=== PATIENT | female | born 1945 | race Caucasian/White ===

== ENCOUNTER → 2016-06-22 | Outpatient (CLI) | payer OTHER ==
--- NOTE | 2016-06-22 16:51 | KCIC ---
PROCEDURE [facility] CXR. HISTORY Dyspnea for 1 year. COMPARISON None available. FINDINGS No acute lung infiltrate or pleural effusion or pulmonary edema or lung mass or pneumothorax is seen. 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 The transverse dimension of the heart is mildly accentuated and this may be secondary to the focal eventration. The pulmonary vasculature, mediastinum and both elías are unremarkable. The osseous structures appear intact. IMPRESSION No acute radiographic abnormality is seen. Electronically signed by: Luis Carlos Mojica MD (Jun 22, 2016 16:50:09)
== END | disposition home or self-care (01) ==
LOC: KCIC 15:40
PROVIDERS: ATTEND Family Medicine
DX: R06.00 Dyspnea, unspecified (principal)
CPT/HCPCS: 71020

== ENCOUNTER → 2016-12-14 | Outpatient (CLI) | payer OTHER ==
--- NOTE | 2016-12-14 20:04 | KCIC ---
Bilateral digital screening mammograms: Reason for examination: Routine screening. Comparison is made to previous studies dated 11/06/2015 and 10/24/2014. The skin and nipples show no abnormalities. No abnormal axillary lymph nodes are seen. The breast parenchyma shows scattered fibroglandular density. (Breast density: Category B.) There are no dominant masses, suspicious calcifications or architectural distortions. Impression: No evidence of malignancy. Recommend routine screening. BI-RADS Category 1: Negative. "Our facility is accredited by the [employer] Mammography [employer]." This patient's information has been entered into a reminder system for the patient to be notified with the results of her examination and a target date for the next mammogram. Electronically signed by: Liliya Greer MD (12/14/2016 8:01 PM)
== END | disposition home or self-care (01) ==
LOC: KCIC MAMMO 14:55
PROVIDERS: ATTEND Family Medicine
DX: Z12.31 Encounter for screening mammogram for malignant neoplasm of breast (principal)
CPT/HCPCS: G0202; 77067

== ENCOUNTER → 2017-06-01 | Outpatient (CLI) | payer OTHER ==
--- NOTE | 2017-06-01 16:43 | KCIC ---
CHEST PA LATERAL Clinical indications: Cough and bronchitis COMPARISON: June 22, 2016. Findings: No acute lung infiltrate or pleural effusion or pulmonary edema or lung mass or pneumothorax is seen. The heart size is mildly enlarged but stable. The pulmonary vasculature, mediastinum and both elías are unremarkable. The osseous structures appear intact. Impression: No acute radiographic abnormality is seen. Electronically signed by: Luis Carlos Mojica MD (06/01/2017 4:40 PM) [facility] [place]
== END | disposition home or self-care (01) ==
LOC: KCIC 14:49
PROVIDERS: ATTEND Family Medicine
DX: J40 Bronchitis, not specified as acute or chronic (principal)
CPT/HCPCS: 71020

== ENCOUNTER → 2017-09-22 | Outpatient (CLI) | payer OTHER ==
[2017-09-22] MEDS: IOHEXOL 300 MG/ML 100ML VIAL. IV (11:19)
[2017-09-22 12:15] LABS: ISTAT CREATININE 0.8 mg/dL (0.6-1.1)
== END | disposition home or self-care (01) ==
LOC: KCIC CT 09:38
DX: R31.9 Hematuria, unspecified (principal)
CPT/HCPCS: 74178; 82565; Q9967

== ENCOUNTER → 2018-01-12 | Outpatient (CLI) | payer OTHER | END | disposition home or self-care (01) | LOC: KCIC MAMMO 14:43 | DX: Z12.31 Encounter for screening mammogram for malignant neoplasm of breast (principal) | CPT/HCPCS: 77063; 77067 ==

== ENCOUNTER → 2019-01-22 | Outpatient (CLI) | payer OTHER ==
--- NOTE | 2019-01-23 08:38 | KCIC ---
Bilateral digital screening mammograms with 3-D tomosynthesis: Reason for examination: Routine screening. Comparison is made to previous studies dated 01/12/2018 and 12/14/2016. Bilateral mammograms in CC and oblique projections were obtained with 2-D imaging and 3-D tomosynthesis imaging on a Siemens Inspiration unit and reviewed on the workstation. Interpretation was made with the benefit of CAD. The skin and nipples show no abnormalities. No abnormal axillary lymph nodes are seen. The breast parenchyma is extremely dense. (Breast density: Category D.) There are no dominant masses, suspicious calcifications or architectural distortion. Benign calcifications are present. Impression: No evidence of malignancy. Recommend routine screening. Your patient's mammogram demonstrates that she has dense breast tissue (breast density category C or D), which could hide abnormalities, and if she has other risk factors for breast cancer that have been identified, she might benefit from supplemental screening tests that may be suggested by you as her ordering physician. Dense breast tissue, in and of itself, is a relatively common condition. Therefore, this information is not provided to cause undue concern, but rather to raise your awareness and to promote discussion with your patient regarding the presence of other risk factors, in addition to dense breast tissue. Your patient's mammography results will be sent to her. BI-RAD Category 2: Benign. "Our facility is accredited by the [employer] Mammography [employer]." This patient's information has been entered into a reminder system for the patient to be notified with the results of her examination and a target date for the next mammogram. Electronically signed by: Liliya Greer MD (01/23/2019 8:36 AM) [id number]
== END | disposition home or self-care (01) ==
LOC: KCIC MAMMO 16:02
PROVIDERS: ATTEND Family Medicine
DX: Z12.31 Encounter for screening mammogram for malignant neoplasm of breast (principal); N64.89 Other specified disorders of breast
CPT/HCPCS: 77063; 77067

== ENCOUNTER → 2020-01-24 | Outpatient (CLI) | payer MEDICARE, OTHER ==
--- NOTE | 2020-01-24 18:24 | KCIC ---
Bilateral digital screening mammograms with 3-D tomosynthesis: Reason for examination: Routine screening. Comparison is made to previous studies dated back to 11/06/2015. Bilateral mammograms in CC and oblique projections were obtained with 2-D imaging and 3-D tomosynthesis imaging on a Siemens Inspiration unit and reviewed on the workstation. Interpretation was made with the benefit of CAD. The skin and nipples show no abnormalities. No abnormal axillary lymph nodes are seen. The breast parenchyma is predominantly fatty. (Breast density: Category A.) There continue to be small nodules consistent with intramammary lymph nodes which are stable. There are no new dominant masses, suspicious calcifications or architectural distortion. Benign calcifications are present. Impression: No evidence of malignancy. Recommend routine screening. BI-RAD Category 2: Benign. "Our facility is accredited by the [employer] Mammography [employer]." This patient's information has been entered into a reminder system for the patient to be notified with the results of her examination and a target date for the next mammogram. Electronically signed by: Liliya Greer MD (01/24/2020 6:21 PM) [id number]
== END | disposition home or self-care (01) ==
LOC: KCIC MAMMO 14:20
PROVIDERS: ATTEND Family Medicine
DX: Z12.31 Encounter for screening mammogram for malignant neoplasm of breast (principal)
CPT/HCPCS: 77063; 77067

== ENCOUNTER → 2021-02-25 | Outpatient (CLI) | payer MEDICARE ==
--- NOTE | 2021-02-26 09:28 | KCIC ---
Bilateral digital screening mammograms (2-D): Reason for examination: Routine screening. Comparison is made to previous study dated Bilateral digital screening mammograms: Reason for examination: Routine screening. Comparison: Mammograms from 01/24/2020 and 01/22/2019. Interpretation was made with the benefit of CAD. FINDINGS: Breast density: Category B. There are scattered areas of fibroglandular density. No suspicious breast mass, malignant appearing calcifications, or architectural distortion seen. IMPRESSION: No evidence of malignancy. Recommend routine screening. Assessment: BI-RADS 1. Negative. Recommendation: Routine screening mammograms. Interpretation was made with the benefit of CAD. This patient's information has been entered into a reminder system for the patient to be notified wit h the results of her examination and a target date for the next mammogram. Electronically signed by: Temi Clemons MD (02/26/2021 9:26 AM) [id number]
== END ==
LOC: KCIC MAMMO 15:16
PROVIDERS: ATTEND Family Medicine
DX: Z12.31 Encounter for screening mammogram for malignant neoplasm of breast (principal)
CPT/HCPCS: 77067

== ENCOUNTER → 2021-05-12 | Outpatient (CLI) | payer MEDICARE ==
--- NOTE | 2021-05-12 16:24 | KCIC ---
EXAM: CHEST 2 VIEWS. HISTORY: Rash, sarcoidosis. COMPARISON: None. FINDINGS: Frontal and lateral views of the chest are obtained. The right hemidiaphragm is mildly elevated. There is mild atelectasis in the left base. There are no confluent infiltrates. There is no pneumothorax or pleural effusion. The heart is not enlarged. A gas tric band prosthesis is in expected position. IMPRESSION: 1. No confluent infiltrates. Electronically signed by: Angie Crowder MD (05/12/2021 4:21 PM) [id number]
== END ==
LOC: KCIC 15:38
PROVIDERS: ATTEND Dermatology
DX: J98.11 Atelectasis (principal); D86.9 Sarcoidosis, unspecified; R21 Rash and other nonspecific skin eruption; Z98.84 Bariatric surgery status
CPT/HCPCS: 71046

== ENCOUNTER → 2021-10-21 | Outpatient (CLI) | payer MEDICARE ==
--- NOTE | 2021-10-21 14:46 | RAD ---
DATE: 10/21/2021 EXAM: MG DIGITAL UNILAT DIAGNOSTIC MAMMO WITH WADE, US BREAST LT HISTORY: Left breast lump that has resolved and tenderness that has also resolved. COMPARISON: 02/25/2021 and 01/24/2020 Breast Density: SCATTERED The breast parenchyma shows scattered fibroglandular densities. Breast pare nchyma level B. FINDINGS: No suspicious mass, suspicious calcification, or architectural distortion. Ultrasound of the left breast was performed in the area of the patient's pain and palpable abnormalit y at 12-1 o'clock 11 cm from the nipple. There is normal fibroglandular tissue. No cyst or mass. Norm al lymph nodes in the left axilla. IMPRESSION: No evidence of malignancy. BI-RADS CATEGORY: 2 BENIGN FINDING(S) RECOMMENDED FOLLOW-UP: 12M 12 MONTH FOLLOW-UP PQRS compliance statement: Patient information was entered into a reminder system with a target due d ate for the next mammogram. Mammography is a sensitive method for finding small breast cancers, but it does not detect them all a nd is not a substitute for careful clinical examination. A negative mammogram does not negate a clin ically suspicious finding and should not result in delay in biopsying a clinically suspicious abnorma lity. "Our facility is accredited by the [employer] Mammography Program." Electronically signed by: Tessie Hancock MD (10/21/2021 2:43 PM) [id number]
== END ==
LOC: MAMMO 12:36
PROVIDERS: ATTEND Internal Medicine
DX: N64.4 Mastodynia (principal)
CPT/HCPCS: 76641; 77065; G0279; 77061